=== PATIENT | male | born 1980 | race Caucasian/White ===

== ENCOUNTER → 2017-01-05 | Outpatient (CLI) | payer BC ==
--- NOTE | 2017-01-05 15:28 | US ---
EXAMINATION TYPE: US abdomen complete DATE OF EXAM: 01/05/2017 2:29 PM COMPARISON: NONE CLINICAL HISTORY: RUQ Pain R10.11. acute epigastric/ruq pain, vomiting EXAM MEASUREMENTS: Liver Length: 16.3 cm Gallbladder Wall: 0.2 cm CBD: 0.4 cm Spleen: 8.9 cm Right Kidney: 10.7 x 3.9 x 5.3 cm Left Kidney: 10.8 x 6.2 x 6.2 cm Some exam limitations due overlying bowel gas. Pancreas: tail gassed out, vis portion wnl Liver: seen with a 1.4 x 1.4 x 1.3cm echogenic solid mass ?hemangioma at the posterior rt lobe Gallbladder: wnl Evidence for sonographic Caldera's sign: no CBD: wnl Spleen: wnl Right Kidney: wnl Left Kidney: wnl Upper IVC: wnl Abd Aorta: wnl The liver is homogenous. There is 1.3 cm round hyperechoic lesion in the hepatic dome that warrants f ollow-up. The intrahepatic portion of the IVC and proximal abdominal aorta are within normal limits. There is no evidence of cholelithiasis. Common bile duct is unremarkable. The visualized portions of the pancreas are homogenous. The spleen is unremarkable. Kidneys are symmetric and free of hydr onephrosis. No renal lesions are seen. IMPRESSION: No significant acute finding is seen to account for patient's symptoms. There is 1.3 cm h yperechoic solid liver lesion, further investigation with multi phase contrast-enhanced liver protoco l CT or MRI is advised to better evaluate and characterize.
== END | disposition home or self-care (01) ==
LOC: RADUSWWP 14:06
PROVIDERS: ATTEND Family Medicine
DX: K76.9 Liver disease, unspecified (principal); R10.11 Right upper quadrant pain
CPT/HCPCS: 76700

== ENCOUNTER → 2017-01-27 | Outpatient (CLI) | payer BC ==
--- NOTE | 2017-01-29 23:42 | MR ---
EXAMINATION TYPE: MR liver wo/w con DATE OF EXAM: 01/27/2017 8:47 AM COMPARISON: NONE HISTORY: hepatomegaly, liver mass CONTRAST: Standard multiplanar, multisequence MRI departmental protocol utilizing 20 mL intravenous MultiHance gadolinium contrast. FINDINGS: There is a 1.5 cm somewhat lobulated density in the posterior superior right lobe of the li hunter. This appears to have progressive enhancement with the contrast and is geographically shaped. The re is a 1 cm rounded area of fluid signal near the narda hepatis. Bile ducts are not dilated. Spleen appears normal. Kidneys have normal size and contour. There is no hydronephrosis. There is no sign of pancreatic mass. There is a 1.5 cm rounded area of intermediate signal in the more posterior superio r right lobe of the liver. This also shows some minimal nodular enhancement at the periphery. IMPRESSION: Small cyst at the narda hepatis. 2 enhancing nodular areas in the posterior superior right lobe of th e liver are consistent with 2 hemangiomas. There is no adverse change compared to ultrasound exam of 01/05/2017. There is delayed contrast enhancement diagnostic of hemangiomata.
== END | disposition home or self-care (01) ==
LOC: RADMRIMAIN 07:31
PROVIDERS: ATTEND Nurse Practitioner Adult Health
DX: K76.89 Other specified diseases of liver (principal); R93.3 Abnormal findings on diagnostic imaging of other parts of digestive tract
CPT/HCPCS: 74183; A9577